=== PATIENT | female | born 1950 | race Caucasian/White ===

== ENCOUNTER 2021-07-01 16:03 | Observation (INO) | payer MEDICARE, SELFPAY ==
--- NOTE | 2021-07-01 16:12 | CTR_ITS ---
PROCEDURE INFORMATION: Exam: CT Head Without Contrast Exam date and time: 07/01/2021 4:08 PM Age: 71 years old Clinical indication: Weakness, facial; Patient HX: Resolved stroke symnptoms; Additional info: Stroke like symptoms- resolved, R sided facial droop, rue and rle paralysis, aphasia TECHNIQUE: Imaging protocol: Computed tomography of the head without contrast. Other technique: STROKE PROTOCOL was implemented. COMPARISON: No relevant prior studies available. RADIATION DOSE METRICS: Total DLP (mGy-cm): 772.75 FINDINGS: Brain: No hemorrhage. No edema. Unremarkable white matter. No mass effect. Cerebral ventricles: No ventriculomegaly. Paranasal sinuses: Visualized sinuses are unremarkable. No fluid levels. Mastoid air cells: Visualized mastoid air cells are well aerated. Bones/joints: Unremarkable. No acute fracture. Soft tissues: Unremarkable. CT/CT head wo con* [id number] IMPRESSION: No acute intracranial abnormality. ASSESSMENT: ASPECTS ([place] Stroke Program Early CT Score) is 10.
[2021-07-01 16:18] VITALS: BP 166/81; PULSE 58; RESP 13; O2SAT 95; BMI 28.5
--- NOTE | 2021-07-01 16:26 | CTR_ITS ---
PROCEDURE INFORMATION: Exam: CT Angiography Head With Contrast, Arteriography Exam date and time: 07/01/2021 5:35 PM Age: 71 years old Clinical indication: Patient HX: L sided weakness; Additional info: Acute TIA with major def -hx mechanical bren valve TECHNIQUE: Imaging protocol: Computed tomography angiography of the head with contrast. Exam focused on the arteries. 3D rendering (Not supervised by radiologist): MIP and/or 3D reconstructed images were created by the technologist. Radiation optimization: All CT scans at this facility use at least one of these dose optimization techniques: automated exposure control; mA and/or kV adjustment per patient size (includes targeted exams where dose is matched to clinical indication); or iterative reconstruction. Contrast material: OMNI 350; Contrast volume: 95 ml; Contrast route: INTRAVENOUS (IV); COMPARISON: CT head wo con* [id number] 07/01/2021 4:08 PM RADIATION DOSE METRICS: Total DLP (mGy-cm): 1766.72 FINDINGS: ANTERIOR CIRCULATION: Right internal carotid artery: Unremarkable. Intracranial segment is patent with no significant stenosis. No aneurysm. Right middle cerebral artery: Unremarkable. No occlusion or significant stenosis. No aneurysm. Right anterior cerebral artery: Unremarkable. No occlusion or significant stenosis. No aneurysm. Left internal carotid artery: Unremarkable. Intracranial segment is patent with no significant stenosis. No aneurysm. Left middle cerebral artery: Unremarkable. No occlusion or significant stenosis. No aneurysm. Left anterior cerebral artery: Unremarkable. No occlusion or significant stenosis. No aneurysm. POSTERIOR CIRCULATION: Right vertebral artery: Unremarkable. No occlusion or significant stenosis. No aneurysm. Left vertebral artery: Unremarkable. No occlusion or significant stenosis. No aneurysm. Basilar artery: Unremarkable. No occlusion or significant stenosis. No aneurysm. Right posterior cerebral artery: Unremarkable. No occlusion or significant stenosis. No aneurysm. Left posterior cerebral artery: Unremarkable. No occlusion or significant stenosis. No aneurysm. Brain: No definite mass, mass effect, or midline shift. Cerebral ventricles: No ventriculomegaly. Bones/joints: Unremarkable. No acute fracture. Soft tissues: Unremarkable. PROCEDURE INFORMATION: Exam: CT Angiography Neck With Contrast Exam date and time: 07/01/2021 5:35 PM Age: 71 years old Clinical indication: Patient HX: L sided weakness; Additional info: Acute TIA with major def -hx mechanical bren valve TECHNIQUE: Imaging protocol: Computed tomography angiography of the neck with contrast. 3D rendering (Not supervised by radiologist): MIP and/or 3D reconstructed images were created by the technologist. Radiation optimization: All CT scans at this facility use at least one of these dose optimization techniques: automated exposure control; mA and/or kV adjustment per patient size (includes targeted exams where dose is matched to clinical indication); or iterative reconstruction. Contrast material: OMNI 350; Contrast volume: 95 ml; Contrast route: INTRAVENOUS (IV); COMPARISON: CT head wo con* [id number] 07/01/2021 4:08 PM RADIATION DOSE METRICS: Total DLP (mGy-cm): 1766.72 FINDINGS: Right common carotid artery: No stenosis. No dissection or occlusion. Right internal carotid artery: No stenosis of the extracranial segment. No dissection or occlusion. Right external carotid artery: No occlusion or stenosis of the origin. Left common carotid artery: No stenosis. No dissection or occlusion. Left internal carotid artery: No stenosis of the extracranial segment. No dissection or occlusion. Left external carotid artery: No occlusion or stenosis of the origin. Right vertebral artery: No stenosis. No dissection or occlusion. Left vertebral artery: No stenosis. No dissection or occlusion. Soft tissues: Normal. No significant soft tissue swelling. Bones/joints: No acute fracture. CT/CT angio headneck* [id number] IMPRESSION: No large vessel stenosis or occlusion. IMPRESSION: No stenosis or occlusion. REFERENCES: NASCET CRITERIA. The degree of internal carotid artery stenosis is based on NASCET criteria. Normal is no stenosis. Mild is less than 50% stenosis. Moderate is 50-69% stenosis. Severe is 70% to 99% stenosis. Total occlusion is no detectable patent lumen.
--- NOTE | 2021-07-01 16:26 | ECG_ITS ---
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 Measurements Intervals [place] Rate: 56 P: 43 MN: 194 QRS: -23 QRSD: 110 T: -53 QT: 454 QTc: 438 Interpretive Statements SINUS BRADYCARDIA LEFT VENTRICULAR HYPERTROPHY AND ST-T CHANGE [VOLTAGE CRITERIA PLUS ST/T ABNORMALITY] POSSIBLE SEPTAL MYOCARDIAL INFARCTION , OF INDETERMINATE AGE [30 ms Q WAVE IN V1/V2] No previous ECG available for comparison Electronically Signed On 07-01-2021 20:40:49 CDT by Nima Crandall M.D. [id number]
--- NOTE | 2021-07-01 16:28 | W.ED.NEUROSD ---
HPI - Neuro Symptoms/Deficit General: Chief Complaint: Neuro Symptoms/Deficit Stated Complaint: Possible stroke, Left side weakness Time Seen by Provider: 07/01/21 16:26 Source: patient Mode of arrival: ambulatory Limitations: no limitations History of Present Illness: 71-year-old female presents to the emergency room with complaints of right-sided paralysis. Symptoms began this afternoon 13-15. By the time she arrived here that all completely resolved. She has a little bit of double vision at distance but otherwise has no other deficits. She described her initial deficits as slurred speech right-sided weakness which she thought was very profound as well at as numbness and tingling. Patient has a mechanical mitral valve and is on warfarin for anticoagulation. She is not previously had a stroke. Onset (ago): hour(s) Last Observed Normal: 13:15 Location: right face, right arm and right leg History of same: Yes Severity: severe Quality: weak, numb and tingling Relieving factors: time Exacerbating factors: none Context: sudden onset On Anticoagulants: Yes Associated symptoms: Deny chest pain, cough, diaphoresis, fevers/chills, headache(s), anorexia, malaise, nausea, seizures, short of breath, syncope, tingling, vertigo, vomiting or weakness Treatments Prior to Arrival: none Review of Systems Const: Denies: fever(s), chills, body aches, malaise or diaphoresis Eyes: Reports: change in vision (Still has double vision distally) ENMT: Denies: throat pain, ear or mastoid pain, nasal discharge or nasal congestion Card: Denies: chest pain, palpitations, irregular heart rhythm or syncope Resp: Denies: dyspnea, productive cough or non-productive cough GI: Denies: abdominal pain, nausea or vomiting : Denies: flank pain, difficulty voiding, dysuria, urinary frequency or urinary urgency Musc: Denies: neck pain or back pain Skin/Breast: Denies: rash or pruritus Neuro: Reports: numbness in extremities, weakness in extremities and sensory changes; Denies: headache(s) or vertigo George/Lymph: Reports: easy bruising and easy bleeding PFS ED PFSH: Medical History TIA (transient ischemic attack) Surgical History H/O mitral valve replacement with mechanical valve H/O valvuloplasty Social History Smoking and tobacco status: never smoked Alcohol intake: never NIH stroke score NIHSS: Level Of Consciousness - 1a: 0 Level Of Consciousness Questions - 1b: Both Correct Level Of Consciousness Commands - 1c: Both Correct Best Gaze - 2: Normal Visual Celaya - 3: No Visual Loss Facial Palsy - 4: Normal Motor Arm Right - 5: No Drift Motor Arm Left - 5: No Drift Motor Leg Right - 6: No Drift Motor Leg Left - 6: No Drift Limb Ataxia - 7: Absent Sensory - 8: Normal Best Language - 9: No Aphasia Dysarthia - 10: Normal Extinction And Inattention - 11: 0 Score: Total Score: 0 Physical Exam Const: GENERAL APPEARANCE: cooperative and comfortable ORIENTATION/CONSCIOUSNESS: Yes awake, Yes oriented to person, Yes oriented to place and Yes oriented to time HENMT: COMMON NORMALS: normocephalic, atraumatic, hearing grossly normal bilaterally, external ears normal, EAC's normal, TM's normal bilaterally, Normal nasal mucous membranes and turbinates present, moist oral mucous membranes and oropharynx normal HEAD & SCALP: normocephalic and atraumatic NOSE: Normal nasal mucous membranes and turbinates present EXTERNAL EAR: Yes external ears normal EXTERNAL AUDITORY CANAL: EAC's normal TYMPANIC MEMBRANE: TM's normal bilaterally Eye: COMMON NORMALS: Equal, round and reactive pupils present, EOMs intact bilaterally, conjunctivae normal and no scleral icterus CONJUNCTIVA: Yes conjunctivae normal PUPIL: Yes Equal, round and reactive pupils present Neck/C-Spine: COMMON NORMALS: full ROM, no lymphadenopathy, supple and no JVD Lymph: LYMPHATIC: no lymphadenopathy noted and no lymphedema noted Resp: COMMON NORMALS: normal respiratory effort, No retractions, No use of accessory muscles and clear to auscultation bilaterally AUSCULTATION: clear to auscultation bilaterally Cardio: COMMON NORMALS: no JVD, regular rate and regular rhythm RATE: regular rate RHYTHM: regular rhythm OTHER: Mechanical heart sounds GI: COMMON NORMALS: Soft to palpation and No hepatosplenomegaly present AUSCULTATION: Yes normoactive bowel sounds PALPATION: Yes Soft to palpation, No Tenderness to palpation present (GI), No Guarding due to palpation present (GI) and Yes No hepatosplenomegaly present Extremity: COMMON NORMALS: normal to inspection, capillary refill normal, no clubbing, cyanosis or edema, no calf tenderness and no pedal edema Neuro: SENSORIUM/ORIENTATION: Yes oriented to person, Yes oriented to place and Yes oriented to time Skin: COMMON NORMALS: no rashes or lesions noted GENERAL SKIN EXAM: no rashes or lesions noted Course Vital Signs: Vital signs: Vital Signs Temperature 98 F 07/02/21 08:00 Pulse Rate 62 07/02/21 08:00 Respiratory Rate 20 H 07/02/21 08:00 Blood Pressure 147/79 07/02/21 08:00 Pulse Oximetry 96 07/02/21 08:00 MDM - Neuro Symptoms/Deficit Medical Decision Making Patient has CVA symptoms and very concerned with the fact she has a mechanical mitral valve and history of atrial fibrillation. By the time she was seen here her symptoms had completely resolved. Were going to admit her discussed the hospitalist doing further evaluation to ensure she does not have thrombus on her valve. She is mildly under anticoagulated at this time. Medical Records I reviewed the patient's medical records. Lab Data I reviewed the patient's lab results. : 07/02/21 04:32 07/02/21 04:[address] 07/01/21 16:12 IMPRESSION: No acute intracranial abnormality. ASSESSMENT: ASPECTS ([place] Stroke Program Early CT Score) is 10. Head/Neck CTA 07/01/21 16:26 IMPRESSION: No large vessel stenosis or occlusion. IMPRESSION: No stenosis or occlusion. REFERENCES: NASCET CRITERIA. The degree of internal carotid artery stenosis is based on NASCET criteria. Normal is no stenosis. Mild is less than 50% stenosis. Moderate is 50-69% stenosis. Severe is 70% to 99% stenosis. Total occlusion is no detectable patent lumen. Laboratory Results WBC 4.6 10^3/uL (4.0-10.0) 07/01/21 16:07 RBC 4.02 10^6/uL (4.1-5.3) L 07/01/21 16:07 Hgb 12.6 g/dL (11.5-15.3) 07/01/21 16:07 Hct 38.0 % (37.0-47.0) 07/01/21 16:07 MCV 94.5 fl (81-99) 07/01/21 16:07 MCH 31.3 pg (28.0-34.0) 07/01/21 16:07 MCHC 33.2 g/dL (30.0-36.0) 07/01/21 16:07 RDW 13.1 % (12.1-15.1) 07/01/21 16:07 Plt Count 153 10^3/cmm (130-400) 07/01/21 16:07 MPV 9.8 fL (7.4-10.4) 07/01/21 16:07 Neut % (Auto) 48.5 % 07/01/21 16:07 Lymph % (Auto) 37.2 % 07/01/21 16:07 Hinds % (Auto) 10.0 % 07/01/21 16:07 Eos % (Auto) 3.2 % 07/01/21 16:07 Baso % (Auto) 0.9 % 07/01/21 16:07 Neut # (Auto) 2.24 10^3/uL (1.8-7.7) 07/01/21 16:07 Lymph # (Auto) 1.7 10^3/uL (0.8-4.8) 07/01/21 16:07 Hinds # (Auto) 0.5 10^3/uL (0.2-0.9) 07/01/21 16:07 Eos # (Auto) 0.2 10^3/uL (0.0-0.8) 07/01/21 16:07 Baso # (Auto) 0.0 10^3/uL (0.0-0.1) 07/01/21 16:07 Nucleated RBC % (auto) 0 % 07/01/21 16:07 Nucleated RBCs # 0.0 /100WBC 07/01/21 16:07 PT 25.20 SECONDS (12.1-14.9) H 07/01/21 16:49 INR 2.26 (0.8-1.2) H 07/01/21 16:49 APTT 31.4 SECONDS (23.9-36.7) 07/01/21 16:49 Sodium 136 mmol/L (136-145) 07/01/21 16:07 Potassium 4.0 mmol/L (3.5-5.1) 07/01/21 16:07 Chloride 103 mmol/L (98-107) 07/01/21 16:07 Carbon Dioxide 22 mmol/L (22-29) 07/01/21 16:07 Anion Gap 15.0 (5-19) 07/01/21 16:07 BUN 17 mg/dL (8-23) 07/01/21 16:07 Creatinine 0.7 mg/dL (0.5-0.9) 07/01/21 16:07 GFR Calculation Not Reportable 07/01/21 16:07 Glucose 143 mg/dL (65-115) H 07/01/21 16:07 POC Glucose 122 mg/dL (70-110) H 07/01/21 16:47 Calculated Osmolality 286 mOsm/kg (285-295) 07/01/21 16:07 Calcium 8.6 mg/dL (8.5-10.5) 07/01/21 16:07 Total Bilirubin 0.5 mg/dL (0.15-1.2) 07/01/21 16:07 AST 18 U/L (0-32) 07/01/21 16:07 ALT 12 U/L (0-33) 07/01/21 16:07 Alkaline Phosphatase 67 IU/L (35-105) 07/01/21 16:07 Total Protein 7.0 g/dL (6.6-8.7) 07/01/21 16:07 Albumin 4.2 g/dL (3.5-5.2) 07/01/21 16:07 Globulin 2.8 g/dL (1.3-4.6) 07/01/21 16:07 Urine Color Yellow (Yellow) 07/01/21 07:07 Urine Appearance Clear (CLEAR) 07/01/21 07:07 Urine pH 6.5 (5-7) 07/01/21 07:07 Ur Specific Rena Lara 1.010 (1.005-1.030) 07/01/21 07:07 Urine Protein Neg (Negative) 07/01/21 07:07 Urine Glucose (UA) Norm (Normal) 07/01/21 07:07 Urine Ketones Negative (Negative) 07/01/21 07:07 Urine Blood Neg (Negative) 07/01/21 07:07 Urine Nitrate Negative (Negative) 07/01/21 07:07 Urine Bilirubin Neg (Negative) 07/01/21 07:07 Urine Urobilinogen Norm mg/dL (Negative) 07/01/21 07:07 Ur Leukocyte Esterase Negative (Negative) 07/01/21 07:07 Urine Opiates Screen Negative ng/mL (Negative) 07/01/21 07:07 Ur Barbiturates Screen Negative ng/mL (Negative) 07/01/21 07:07 Ur Phencyclidine Scrn Negative ng/mL (Negative) 07/01/21 07:07 Ur Amphetamines Screen Negative ng/mL (Negative) 07/01/21 07:07 U Benzodiazepines Scrn Negative ng/mL (Negative) 07/01/21 07:07 Urine Cocaine Screen Negative ng/mL (Negative) 07/01/21 07:07 U Marijuana (THC) Screen Negative ng/mL (Negative) 07/01/21 07:07 Discharge Plan Discharge Patient Disposition: Admitted As Inpatient Admit Provider: Tyler Anguiano Clinical Impression: Cerebrovascular accident, H/O valvuloplasty Condition: Stable Discharge Diet: Regular Discharge Activity: Resume usual activity Coding Level of Care Code ED [employer] Worker for Ritchie Fwd Exam Comprehensive
[2021-07-01 16:44] LABS: Basophils % 0.9 %; Eosinophils # 0.2 10^3/uL (0.0-0.8); Eosinophils % 3.2 %; Hemoglobin 12.6 g/dL (11.5-15.3); Lymphocytes # 1.7 10^3/uL (0.8-4.8); Lymphocytes % 37.2 %; Mean Corpuscular HGB Conc 33.2 g/dL (30.0-36.0); Mean Corpuscular Hemoglobin 31.3 pg (28.0-34.0); Mean Corpuscular Volume 94.5 fl (81-99); Mean Platelet Volume 9.8 fL (7.4-10.4); Monocytes # 0.5 10^3/uL (0.2-0.9); Neutrophils # 2.24 10^3/uL (1.8-7.7); Neutrophils % 48.5 %; Nucleated Red Blood Cells % 0 %; Platelet Count 153 10^3/cmm (130-400); Red Blood Count 4.02 10^6/uL (4.1-5.3); Red Cell Distribution Width 13.1 % (12.1-15.1); White Blood Count 4.6 10^3/uL (4.0-10.0)
[2021-07-01 17:19] LABS: INR 2.26 (0.8-1.2); Partial Thromboplastin Time 31.4 SECONDS (23.9-36.7)
[2021-07-01 17:20] LABS: Alanine Aminotransferase 12 U/L (0-33); Albumin Level 4.2 g/dL (3.5-5.2); Alkaline Phosphatase 67 IU/L (35-105); Aspartate Amino Transferase 18 U/L (0-32); Blood Urea Nitrogen 17 mg/dL (8-23); Calcium 8.6 mg/dL (8.5-10.5); Carbon Dioxide 22 mmol/L (22-29); Chloride 103 mmol/L (98-107); Globulin 2.8 g/dL (1.3-4.6); Glucose 143 mg/dL (65-115); Osmolality Calculated 286 mOsm/kg (285-295); Sodium 136 mmol/L (136-145); Total Bilirubin 0.5 mg/dL (0.15-1.2)
--- NOTE | 2021-07-01 17:39 | PM.HP ---
Providers/Chief Complaint Admitting Physician: Tyler Anguiano MD Chief Complaint: Possible stroke, Left side weakness History of Present Illness Mouna Cornejo is a 71 year old female with PMH of HTN, dyslipidemia, A. fib, mechanical mitral valve on warfarin, came in with c/o acute onset of rt sided weakness accompanied with slurred speech as well as tingling, numbness,started today around 1:15 PM by the time she was seen in the ER weakness was completely resolved. When I examined the patient's he was predominantly complaining of diplopia. She denied any chest pain shortness of breath nausea vomiting dizziness, headache, weakness in any body part Denied any bowel or bladder dysfunction. Pertinent Imaging Studies : CT head wo con: No acute intracranial abnormality CTA Head and Neck :No large vessel stenosis or occlusion EKG: Sinus Bradycardia Pertinent Labs : WBC: 4.6, 12/38 , PLT : 153 , Na : 136 ,k: 4 ,BUN/SCR : 17/0.7 RBS: 143 , PT/ INR: 25/2.2 Aptt: 31 Review of Systems General: Reports: 10 or more systems reviewed and unremarkable except in HPI and below Const: Denies: fever(s), chills, body aches, change in appetite or diaphoresis Card: Denies: palpitations, edema, swelling of feet/ankles, dyspnea on exertion, orthopnea or leg pain with exertion Resp: Denies: dyspnea, productive cough, wheezing or pain on inspiration GI: Denies: abdominal pain, nausea, vomiting, diarrhea or constipation : Denies: flank pain Musc: Denies: back pain, extremity pain or extremity swelling Neuro: Denies: headache(s), difficulty walking or confusion Medications/Allergies Home Medications Medication Instructions Recorded Confirmed Last Taken Type atorvastatin 10 mg tablet 10 mg PO BEDTIME 07/01/21 07/01/21 06/30/21 History diltiazem HCl 240 mg capsule,24 240 mg PO BEDTIME 07/01/21 07/01/21 06/30/21 21:00 History hr,extended release psyllium husk 0.52 gram capsule 1.04 g PO DAILY 07/01/21 07/01/21 06/30/21 21:00 History (Fiber-Caps (psyllium husk)) vitamin E 1,000 unit capsule 1,000 unit PO DAILY 07/01/21 07/01/21 06/30/21 21:00 History warfarin 5 mg tablet 5 mg PO BEDTIME 07/01/21 07/01/21 06/30/21 21:00 History Allergies Allergy/AdvReac Type Severity Reaction Status Date / Time No Known Allergies Allergy Verified 07/01/21 21:11 PFSH Acute PFSH: Surgical History H/O mitral valve replacement with mechanical valve H/O valvuloplasty Social History Smoking and tobacco status: never smoked Alcohol intake: never Vitals/I&O/Wt Last Vital Signs Pulse 58 L 07/01/21 16:18 Resp 13 07/01/21 16:18 BP 166/81 07/01/21 16:18 Pulse Ox 95 07/01/21 16:18 Weight last 48 hrs Weight 75.387 kg Physical Exam Const: COMMON NORMALS: patient oriented x3 HENMT: COMMON NORMALS: normocephalic, atraumatic, hearing grossly normal bilaterally and external ears normal HEAD & SCALP: normocephalic and atraumatic EXTERNAL EAR: Yes external ears normal Eye: COMMON NORMALS: no scleral icterus GENERAL EYE: appearance normal, both eyes and all related structures Chest: COMMONS NORMALS: normal inspection of the chest and normal palpation of entire chest wall CHEST: Yes Symmetrical chest wall rise Resp: COMMON NORMALS: normal respiratory effort, No retractions, No use of accessory muscles and clear to auscultation bilaterally EFFORT & INSPECTION: Yes symmetric chest movement AUSCULTATION: clear to auscultation bilaterally Cardio: COMMON NORMALS: regular rate, regular rhythm, S1 normal heart sound present, S2 normal heart sound present, No gallops present (Cardio), No murmurs present (Cardio), No rub (Cardio) and Peripheral pulses 2+ throughout RATE: regular rate RHYTHM: regular rhythm HEART SOUNDS: S1 normal heart sound present and S2 normal heart sound present PERIPHERAL PULSES: Peripheral pulses 2+ throughout GI: COMMON NORMALS: Normal to inspection, nondistended, normoactive bowel sounds present, Soft to palpation, non-tender, No hepatosplenomegaly present and no masses AUSCULTATION: Yes normoactive bowel sounds PALPATION: Yes Soft to palpation and Yes No hepatosplenomegaly present RECTAL EXAM: deferred Extremity: COMMON NORMALS: no clubbing, cyanosis or edema and no pedal edema Neuro: COMMON NORMALS: patient oriented x3 Data : 07/02/21 04:32 07/02/21 04:32 A&P Assessment and plan (1) H/O mitral valve replacement with mechanical valve: Status: Acute (2) TIA (transient ischemic attack): Status: Acute Plan Mouna Cornejo is a 71 year old female with PMH of came in with c/o acute onset of rt sided weakness accompanied with slurred speech as well as tingling, numbness Assessment : #TIA : CT head wo con: No acute intracranial abnormality CTA Head and Neck :No large vessel stenosis or occlusion EKG: Sinus Bradycardia P/T Evaluation SPL Fall precaution Telemetry Monitoring 2D Echo Possible GINO Permissive HTN FOR Next 48HRS Aspirin , statin #Subtherapeutic INR: Goal INR for mechanical mitral valve:2.5-3.5 Current INR is 2.2 #H/o Mechanical MVR: Will keep on therapeutic Lovenox for now Will resume Warfarin on discharge Monitor PT/INR #Code Status :Full code #DVT PPX: On lovenox Attestations Medical Necessity Statement*: Patient needs to be in hospital for management of TIA. Time Spent in Patient Care: Greater than 35 minutes (>than 50% of time spent in counselling and/or direct pt care on unit). Coding Level of Care Code Acute Clinical Director for g Fwd Exam Comprehensive Diagnoses H/O mitral valve replacement with mechanical valve Z95.2 TIA (transient ischemic attack) G45.9
[2021-07-01] MEDS: iohexol 350 mg/mL 100 mL Btl IV (17:42)
[2021-07-01 18:27] LABS: Add Urine Microscopic? NO; Charge for UA Resulting for Rev
[2021-07-01 18:35] LABS: Bilirubin Urine Neg (Negative); Blood Urine Neg (Negative); Glucose Urine UA Norm (Normal); Ketones Urine Negative (Negative); Leukocyte Esterase Urine Negative (Negative); Nitrate Urine Negative (Negative); Protein Urine Neg (Negative); Urine Appearance Clear (CLEAR); Urine Color Yellow (Yellow); Urobilinogen Urine Norm (Negative); pH Urine 6.5 (5-7)
[2021-07-01 18:38] LABS: Amphetamines Screen Urine Negative (Negative); Barbiturates Screen Urine Negative (Negative); Benzodiazepines Screen Urine Negative (Negative); Cocaine Screen Urine Negative (Negative); Opiate Screen Urine Negative (Negative); PCP Screen Urine Negative (Negative); THC Screen Urine Negative (Negative)
[2021-07-01 19:47] VITALS: BMI 28.0
[2021-07-01 20:00] VITALS: PULSE 62; RESP 15
[2021-07-01 21:00] VITALS: BP 169/88; PULSE 55; RESP 17; TEMP 36.6; O2SAT 98
[2021-07-01 22:00] VITALS: BP 178/78; PULSE 60; PULSE 62; RESP 16
[2021-07-01 23:00] VITALS: BP 145/74; PULSE 61; RESP 18
[2021-07-02] VITALS (9 sets, daily range): BP systolic 127–156; BP diastolic 68–86; PULSE 60–73; RESP 14–25; TEMP 36.6–36.8; O2SAT 95–96
[2021-07-02 05:10] LABS: Basophils % 0.8 %; Eosinophils # 0.2 10^3/uL (0.0-0.8); Eosinophils % 4.7 %; Hematocrit 40.1 % (37.0-47.0); Hemoglobin 13.2 g/dL (11.5-15.3); Lymphocytes # 2.2 10^3/uL (0.8-4.8); Mean Corpuscular HGB Conc 32.9 g/dL (30.0-36.0); Mean Corpuscular Hemoglobin 31.3 pg (28.0-34.0); Mean Platelet Volume 9.5 fL (7.4-10.4); Monocytes # 0.5 10^3/uL (0.2-0.9); Monocytes % 10.8 %; Neutrophils % 38.7 %; Nucleated Red Blood Cells % 0 %; Platelet Count 159 10^3/cmm (130-400); Red Blood Count 4.22 10^6/uL (4.1-5.3); Red Cell Distribution Width 12.7 % (12.1-15.1); White Blood Count 4.9 10^3/uL (4.0-10.0)
[2021-07-02 05:37] LABS: Chol HDL Ratio 3.27 mg/dL (0.0-4.40); Cholesterol 167 mg/dL (0-200); HDL Cholesterol 51 mg/dL (60-100); LDL Cholesterol Calculated 95 mg/dL (50-129); LDL HDL Ratio 1.86 RATIO (0.00-3.22); Triglycerides 104 mg/dL (0-150)
[2021-07-02 05:38] LABS: Alanine Aminotransferase 12 U/L (0-33); Albumin Level 4.2 g/dL (3.5-5.2); Alkaline Phosphatase 70 IU/L (35-105); Anion Gap 14.9 (5-19); Aspartate Amino Transferase 16 U/L (0-32); Blood Urea Nitrogen 11 mg/dL (8-23); Calcium 9.3 mg/dL (8.5-10.5); Carbon Dioxide 22 mmol/L (22-29); Chloride 106 mmol/L (98-107); Creatinine Clr Calc Pharmacy 61.7081; Globulin 2.8 g/dL (1.3-4.6); Glucose 95 mg/dL (65-115); Osmolality Calculated 287 mOsm/kg (285-295); Potassium 3.9 mmol/L (3.5-5.1); Sodium 139 mmol/L (136-145); Total Bilirubin 0.6 mg/dL (0.15-1.2)
[2021-07-02 05:50] LABS: Estmated Average Glucose 97
--- NOTE | 2021-07-02 06:00 | USCV_ITS ---
Mouna Cornejo Age: 71 Gender: F : 1950 Exam Date: 07/02/2021 07:35 Ordering Phys: Carlos Pugh DO Technologist: ANA MARIA Exam Location: [facility] – [place] Indication: TIA, H/O MECHANICAL MITRAL VALVE BP: 137 / 75 HR: 59 Rhythm: Sinus Technical Quality: Adequate MEASUREMENTS (Male / Female) Normal Values 2D ECHO LV Diastolic Diameter PLAX 4.8 cm 4.2 - 5.9 / 3.9 - 5.3 cm LV Systolic Diameter PLAX 3.4 cm IVS Diastolic Thickness 1.7 cm 0.6 - 1.0 / 0.6 - 0.9 cm IVS Systolic Thickness 2.1 cm LVPW Diastolic Thickness 1.2 cm 0.6 - 1.0 / 0.6 - 0.9 cm LVPW Systolic Thickness 1.6 cm LVOT Diameter 2.0 cm LV Ejection Fraction 2D Teich 54.2 % LV Ejection Fraction MOD 2C 59.6 % LV Ejection Fraction 2C AL 60.3 % LA Diameter 2.9 cm LA Width 3.9 cm LA Height 4.1 cm RA Width 3.4 cm RA Height 5.0 cm Aorta at Sinotubular Diameter 2.3 cm IVC Diameter 1.7 cm M-MODE Aortic Annulus Diameter 3.3 cm LA Ao Ratio MM 0.9 DOPPLER AV Peak Velocity 111.0 cm/s LVOT Peak Velocity 76.0 cm/s AV Area Cont Eq vti 2.3 cm squared AV Area Cont Eq pk 2.2 cm squared MV Peak Velocity 225.0 cm/s MV Area PHT 2.6 cm squared Mitral E to A Ratio 3.5 MV E' Velocity 82.5 cm/s Mitral E to MV E' Ratio 15.7 Mitral E to LV E' Lateral Ratio 13.7 Mitral E to LV E' Septal Ratio 18.6 TR Peak Velocity 210.0 cm/s TR Peak Gradient 17.6 mmHg TV Peak E Velocity 51.0 cm/s Right Atrial Pressure 3.0 mmHg Pulmonary Artery Systolic Pressu 20.6 mmHg PV Peak Velocity 100.0 cm/s RV Acceleration Time 0.1 s RV Ejection Time 0.4 s RV AcT/ET 0.2 FINDINGS Left Ventricle Normal left ventricular cavity size. Mildly increased left ventricular wall thickness. Normal left ventricle systolic function. Left ventricular ejection fraction is estimated at 60 %. No regional wall motion abnormalities. No left ventricular apical thrombus. Right Ventricle Normal right ventricular size and systolic function. RVSP could not be calculated due to incomplete tricuspid regurgitation velocity profile. Right Atrium Normal right atrial size. Right atrial pressure estimated at 3 mmHg. Left Atrium Mildly increased left atrial size. Mitral Valve Mechanical mitral valve well-seated and normally functioning. Mitral valve mean gradient of 5 mmHg. No significant valvular or perivalvular regurgitation noted. Aortic Valve Structurally normal trileaflet aortic valve. No aortic valve stenosis. Mild aortic valve regurgitation. Tricuspid Valve Structurally normal tricuspid valve. No tricuspid valve stenosis. Trace to mild tricuspid valve regurgitation. Pulmonic Valve Structurally normal pulmonic valve. No pulmonary valve stenosis. Trace pulmonary valve regurgitation. Pericardium No pericardial effusion. Aorta Upper normal sized aortic root. Normal-sized inferior vena cava with greater than 50% respiratory variation. CONCLUSIONS 1. Normal left ventricular cavity size and systolic function. Mildly increased left ventricular wall thickness. Left ventricular ejection fraction is estimated at 60 %. No regional wall motion abnormalities. 2. Normal right ventricular size and systolic function. 3. Mechanical mitral valve well-seated and normally functioning. 4. No cardioembolic source of stroke based on the study. However left atrium, left atrial appendage and mechanical mitral valve not well visualized on the study. Transesophageal echocardiogram may be considered if clinically indicated. 5. No prior studies to compare. Sofia Amezcua MD (Electronically Signed) Final Date: 02 Jul 2021 09:06 S
--- NOTE | 2021-07-02 07:31 | PC.NURSE ---
received bedside report from Alleman. Neuro assessment done, negative on all accounts. reviewed poc and assumed care of patient. She is a/o, no needs identified at this time.
[2021-07-02] MEDS: enoxaparin 80 mg/0.8 mL Syringe 70 MG SUBCUT (08:40)
[2021-07-02] MEDS: aspirin 81 mg EC Tablet PO (08:41)
[2021-07-02] MEDS: atorvastatin 40 mg Tablet PO (08:41)
[2021-07-02 08:42] LABS: Glucose Point of Care 122 mg/dL (70-110)
--- NOTE | 2021-07-02 11:06 | P.DS_ITS ---
Discharge Providers Date of Admission: 07/01/21 17:03 Date of Discharge: July 02, 2021 Attending Provider at Admission: Tyler Anguiano MD Attending Provider at Discharge: Tyler Anguiano MD Diagnoses at Discharge Discharge Diagnosis (1) H/O mitral valve replacement with mechanical valve: Status: Acute (2) TIA (transient ischemic attack): Status: Acute Reason for Visit Reason for Visit: Possible stroke, Left side weakness Hospital Course Hospital Course HPI: Mouna Cornejo is a 71 year old female with PMH of HTN, dyslipidemia, A. fib, mechanical mitral valve on warfarin, came in with c/o acute onset of rt sided weakness accompanied with slurred speech as well as tingling, numbness,started today around 1:15 PM? by the time she was seen in the ER weakness was completely resolved.? When I examined the patient's he was predominantly complaining of diplopia. She denied any chest pain shortness of breath nausea vomiting dizziness, headache, weakness in any body part Denied any bowel or bladder dysfunction. Pertinent Imaging Studies : CT head wo con: No acute intracranial abnormality CTA Head and Neck :No large vessel stenosis or occlusion EKG: Sinus Bradycardia Pertinent Labs : WBC: 4.6, 12/38 , PLT : 153 , Na : 136 ,k: 4 ,BUN/SCR : 17/0.7 RBS: 143 , PT/ INR: 25/2.2 Aptt: 31 Hospital course: Patient was admitted for management of TIA: She was kept on stroke protocol. She was started on aspirin, statin dose was increased to 40 p.o. daily, permissive hypertension was allowed, PT evaluation was done 2D echo was done : ?Normal left ventricular cavity size and systolic function.?Mildly increased left ventricular wall thickness.? Left ventricular ejection fraction is estimated at 60 %. No regional ?wall motion abnormalities. Normal right ventricular size and systolic function. Mechanical mitral valve well-seated and normally functioning. No arrhythmia noted on telemetry monitoring, was in sinus rhythm. At the time of discharge patient had no significant residual weakness, diplopia has resolved, speech was fine, no difficulty with swallowing, Sensations were intact. Given the fact that the patient INR was subtherapeutic: She has been started on therapeutic Lovenox along with warfarin which she was taking as at home dose, she has been advised to get a repeat INR done in 3 days. Once the INR is therapeutic at goal of 2.5-3.5, Lovenox can be discontinued. 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 Patient has responded well to above medical management and is being discharged in stable condition to home. Physical Exam Const: COMMON NORMALS: patient oriented x3 HENMT: COMMON NORMALS: normocephalic, atraumatic, hearing grossly normal bilaterally and external ears normal HEAD & SCALP: normocephalic and at raumatic EXTERNAL EAR: Yes external ears normal Eye: COMMON NORMALS: no scleral icterus GENERAL EYE: appearance normal, both eyes and all related structures Chest: COMMONS NORMALS: normal inspection of the chest and normal palpation of entire chest wall CHEST: Yes Symmetrical chest wall rise Resp: COMMON NORMALS: normal respiratory effort, No retractions, No use of accessory muscles and clear to auscultation bilaterally EFFORT & INSPECTION: Yes symmetric chest movement AUSCULTATION: clear to auscultation bilaterally Cardio: COMMON NORMALS: regular rate, regular rhythm, S1 normal heart sound present, S2 normal heart sound present, No gallops present (Cardio), No murmurs present (Cardio), No rub (Cardio) and Peripheral pulses 2+ throughout RATE: regular rate RHYTHM: regular rhythm HEART SOUNDS: S1 normal heart sound present and S2 normal heart sound present PERIPHERAL PULSES: Peripheral pulses 2+ throughout GI: COMMON NORMALS: Normal to inspection, nondistended, normoactive bowel sounds present, Soft to palpation, non-tender, No hepatosplenomegaly present and no masses AUSCULTATION: Yes normoactive bowel sounds PALPATION: Yes Soft to palpation and Yes No hepatosplenomegaly present RECTAL EXAM: deferred Extremity: COMMON NORMALS: no clubbing, cyanosis or edema and no pedal edema Neuro: COMMON NORMALS: patient oriented x3 Discharge Data Studies Completed and Pending Completed Studies During Hospitalization Category Date Time Status CT angio headneck* [id number] Stat Cat Scan 07/01/21 16:[address] head wo con* [id number] Stat Cat Scan 07/01/21 16:12 Completed CV. echo complete* [id number] Routine Ultrasound 07/02/21 06:00 Completed Pending at discharge Category Date Time Status Complete Blood Count w/Auto AM LABS Lab 07/03/21 04:00 Ordered Complete Blood Count w/Auto AM LABS Lab 07/04/21 04:00 Ordered Comprehensive Metabolic Panel AM LABS Lab 07/03/21 04:00 Ordered Comprehensive Metabolic Panel AM LABS Lab 07/04/21 04:00 Ordered Radiology Impressions Head CT 07/01/21 16:12 IMPRESSION: No acute intracranial abnormality. ASSESSMENT: ASPECTS (Sena Stroke Program Early CT Score) is 10. Head/Neck CTA 07/01/21 16:26 IMPRESSION: No large vessel stenosis or occlusion. IMPRESSION: No stenosis or occlusion. REFERENCES: NASCET CRITERIA. The degree of internal carotid artery stenosis is based on NASCET criteria. Normal is no stenosis. Mild is less than 50% stenosis. Moderate is 50-69% stenosis. Severe is 70% to 99% stenosis. Total occlusion is no detectable patent lumen. Laboratory Results WBC 4.9 10^3/uL (4.0-10.0) 07/02/21 04:32 RBC 4.22 10^6/uL (4.1-5.3) 07/02/21 04:32 Hgb 13.2 g/dL (11.5-15.3) 07/02/21 04:32 Hct 40.1 % (37.0-47.0) 07/02/21 04:32 MCV 95.0 fl (81-99) 07/02/21 04:32 MCH 31.3 pg (28.0-34.0) 07/02/21 04:32 MCHC 32.9 g/dL (30.0-36.0) 07/02/21 04:32 RDW 12.7 % (12.1-15.1) 07/02/21 04:32 Plt Count 159 10^3/cmm (130-400) 07/02/21 04:32 MPV 9.5 fL (7.4-10.4) 07/02/21 04:32 Neut % (Auto) 38.7 % 07/02/21 04:32 Lymph % (Auto) 45.0 % 07/02/21 04:32 [place] % (Auto) 10.8 % 07/02/21 04:32 Eos % (Auto) 4.7 % 07/02/21 04:32 Baso % (Auto) 0.8 % 07/02/21 04:32 Neut # (Auto) 1.90 10^3/uL (1.8-7.7) 07/02/21 04:32 Lymph # (Auto) 2.2 10^3/uL (0.8-4.8) 07/02/21 04:32 [place] # (Auto) 0.5 10^3/uL (0.2-0.9) 07/02/21 04:32 Eos # (Auto) 0.2 10^3/uL (0.0-0.8) 07/02/21 04:32 Baso # (Auto) 0.0 10^3/uL (0.0-0.1) 07/02/21 04:32 Nucleated RBC % (auto) 0 % 07/02/21 04:32 Nucleated RBCs # 0.0 /100WBC 07/02/21 04:32 PT 23.00 SECONDS (12.1-14.9) H 07/02/21 04:32 INR 2.00 (0.8-1.2) H 07/02/21 04:32 APTT 31.4 SECONDS (23.9-36.7) 07/01/21 16:49 Sodium 139 mmol/L (136-145) 07/02/21 04:32 Potassium 3.9 mmol/L (3.5-5.1) 07/02/21 04:32 Chloride 106 mmol/L (98-107) 07/02/21 04:32 Carbon Dioxide 22 mmol/L (22-29) 07/02/21 04:32 Anion Gap 14.9 (5-19) 07/02/21 04:32 BUN 11 mg/dL (8-23) 07/02/21 04:32 Creatinine 0.6 mg/dL (0.5-0.9) 07/02/21 04:32 GFR Calculation Not Reportable 07/02/21 04:32 Glucose 95 mg/dL (65-115) 07/02/21 04:32 POC Glucose 122 mg/dL (70-110) H 07/01/21 16:47 Estimat Average Glucose 97 07/02/21 04:32 Hemoglobin A1c 5.0 % (4.0-6.0) 07/02/21 04:32 Calculated Osmolality 287 mOsm/kg (285-295) 07/02/21 04:32 Calcium 9.3 mg/dL (8.5-10.5) 07/02/21 04:32 Magnesium 2.0 mg/dL (1.7-2.3) 07/02/21 04:32 Total Bilirubin 0.6 mg/dL (0.15-1.2) 07/02/21 04:32 AST 16 U/L (0-32) 07/02/21 04:32 ALT 12 U/L (0-33) 07/02/21 04:32 Alkaline Phosphatase 70 IU/L (35-105) 07/02/21 04:32 Total Protein 7.0 g/dL (6.6-8.7) 07/02/21 04:32 Albumin 4.2 g/dL (3.5-5.2) 07/02/21 04:32 Globulin 2.8 g/dL (1.3-4.6) 07/02/21 04:32 Triglycerides 104 mg/dL (0-150) 07/02/21 04:32 Cholesterol 167 mg/dL (0-200) 07/02/21 04:32 LDL Cholesterol, Calc 95 mg/dL (50-129) 07/02/21 04:32 HDL Cholesterol 51 mg/dL (60-100) L 07/02/21 04:32 LDL/HDL Ratio 1.86 RATIO (0.00-3.22) 07/02/21 04:32 Cholesterol/HDL Ratio 3.27 mg/dL (0.0-4.40) 07/02/21 04:32 Urine Color Yellow (Yellow) 07/01/21 07:07 Urine Appearance Clear (CLEAR) 07/01/21 07:07 Urine pH 6.5 (5-7) 07/01/21 07:07 Ur Specific [place] 1.010 (1.005-1.030) 07/01/21 07:07 Urine Protein Neg (Negative) 07/01/21 07:07 Urine Glucose (UA) Norm (Normal) 07/01/21 07:07 Urine Ketones Negative (Negative) 07/01/21 07:07 Urine Blood Neg (Negative) 07/01/21 07:07 Urine Nitrate Negative (Negative) 07/01/21 07:07 Urine Bilirubin Neg (Negative) 07/01/21 07:07 Urine Urobilinogen Norm mg/dL (Negative) 07/01/21 07:07 Ur Leukocyte Esterase Negative (Negative) 07/01/21 07:07 Urine Opiates Screen Negative ng/mL (Negative) 07/01/21 07:07 Ur Barbiturates Screen Negative ng/mL (Negative) 07/01/21 07:07 Ur Phencyclidine Scrn Negative ng/mL (Negative) 07/01/21 07:07 Ur Amphetamines Screen Negative ng/mL (Negative) 07/01/21 07:07 U Benzodiazepines Scrn Negative ng/mL (Negative) 07/01/21 07:07 Urine Cocaine Screen Negative ng/mL (Negative) 07/01/21 07:07 U Marijuana (THC) Screen Negative ng/mL (Negative) 07/01/21 07:07 Vitals Last Vital Signs Temp 98 F 07/02/21 08:00 Pulse 62 07/02/21 08:00 Resp 20 H 07/02/21 08:00 BP 147/79 07/02/21 08:00 Pulse Ox 96 07/02/21 08:00 Discharge Plan Discharge Patient Disposition: Home Condition: Stable Prescriptions: New Lovenox 60 mg/0.6 mL syringe 75 mg SUBCUT Q12H Qty: 6 0RF Continued warfarin 5 mg tablet 5 mg PO BEDTIME 0RF diltiazem HCl 240 mg capsule,extended release 24 hr 240 mg PO BEDTIME 0RF vitamin E 1,000 unit Capsule 1,000 unit PO DAILY 0RF Fiber-Caps (psyllium husk) 0.52 gram Capsule 1.04 g PO DAILY 0RF Changed atorvastatin 10 mg tablet 40 mg PO BEDTIME 30 Days Qty: 30 3RF Discharge Orders: Discharge Order (Routine); Ordered 07/02/21 Ordered By: Tyler Anguiano Other Ambulatory Orders: Prothrombin Time INR (Routine) Timeframe: 3 Days Facility: [facility] - Location: Lab - Main Lab Ordered By: Tyler Anguiano Discharge Diet: Regular Discharge Activity: Resume usual activity Patient Instructions: Enoxaparin (By injection) (Lovenox), Transient Ischemic Attack (DC), Opioid Safety Discharge Attestations Time Spent in Discharge Care*: greater than 30 min Specific Discharge Activities: educating patient, discussing with pcp/other providers, discussing with trimming caser/social workers/dc planners, do cumenting/other paperwork and evaluating patient/reviewing data Status at Discharge: Cognitive status at discharge: cognitively intact , Behavioral status at discharge: cooperative , Functional status at discharge: independent ambulation , Overall status at discharge: patient is back to baseline Quality Metrics Clinical Quality Measures [ No reported AMI, CVA or VTE this stay] Coding Level of Care Code Acute Chg FW DC note Diagnoses H/O mitral valve replacement with mechanical valve Z95.2 TIA (transient ischemic attack) G45.9
[2021-07-02] MEDS: warfarin 5 mg Tablet 10 MG PO (11:18)
--- NOTE | 2021-07-02 12:00 | PC.NURSE ---
dc'd pts piv, coban placed in case of bleeding risk. no bleeding or hematoma present. discussed followup recommendation, lab slip given for INR to be drawn in three day. rx for lovenox and atorvastatin given to pt to fill at pharmacy of her choice. They are heading to [facility] today and said they would fill it there. Pt has no s/s of TIA or stroke at the time of discharge. verbalized understanding and has no further questions at this time. Left ambulating per her request with her to private vehicle.
== END 2021-07-02 11:50 | disposition home or self-care (01) ==
LOC: ER 17:49 → CSU 18:17
PROVIDERS: Admitting Provider Internal Medicine; Emergency Provider Family Medicine; Visit Provider Internal Medicine
DX: Z95.2 Presence of prosthetic heart valve (principal); G45.9 Transient cerebral ischemic attack, unspecified; I10 Essential (primary) hypertension; E78.5 Hyperlipidemia, unspecified; I48.91 Unspecified atrial fibrillation; Z79.01 Long term (current) use of anticoagulants
CPT/HCPCS: 36415; 36416; 70450; 70496; 70498; 80053; 80061; 80306; 81003; 82962; 83036; 83735; 85025; 85610; 85730; 92523; 92610; 93005; 93306; 96372; 97161; 97165; 99285; G0378; J1650; Q9967